=== PATIENT | female | born 2000 | race Caucasian/White ===

== ENCOUNTER 2022-02-14 21:50 | Emergency (ER) | payer BC ==
[2022-02-15] LABS: BHCG - Serum Negative (NEGATIVE); Pregs Control Background? CLEAR/WHITE (CLR/WHITE); Pregs Control Bar Appear? YES (CONTROL BAR)
[2022-02-15 00:01] LABS: #Basophils 0.1 10x3/uL (0.0-0.2); #Eosinphils 0.1 10x3/uL (0.0-0.5); #Monocytes 0.4 10x3/uL (0.0-1.1); #Neutrophils 4.3 10x3/uL (1.5-8.4); %Basophils 0.9 % (0.0-2.0); %Eosinophils 0.7 % (0.0-6.0); %Lymphocytes 28.9 % (18.0-47.0); %Monocytes 6.1 % (0.0-10.0); %Neutrophils 63.1 % (40.0-75.0); Hemoglobin 14.9 g/dL (12.0-15.5); Mean Corpuscular HGB CONC 34.3 g/dL (32.0-36.0); Mean Corpuscular Hemoglobin 29.3 pg (27.0-33.0); Mean Corpuscular Volume 85.3 fl (81.6-98.3); Mean Platelet Volume 11.2 fl (7.4-10.4); Platelet Count 286 10x3/uL (150-450); Red Blood Cell (RBC) Count 5.09 10x6/uL (3.90-5.03); White Blood Cell (WBC) Count 6.7 10x3/uL (3.5-10.5)
[2022-02-15 00:05] LABS: ALT (SGPT) 9 U/L (8-55); AST (SGOT) 14 U/L (5-34); Albumin 4.8 g/dL (3.5-5.0); Alkaline Phosphatase 83 U/L (40-110); Anion Gap 16 mmol/L (10-20); BUN (Urea Nitrogen) 12 mg/dL (7.0-18.7); Bilirubin, Total 0.4 mg/dL (0.2-1.2); Calc. Creatinine Clearance 0 mL/min (70-130); Calcium 9.8 mg/dL (7.8-10.44); Carbon Dioxide 21 mmol/L (22-29); Chloride 104 mmol/L (98-107); Globulin 2.7 g/dL (2.4-3.5); Glucose 110 mg/dL (70-105); Potassium 3.9 mmol/L (3.5-5.1); Protein, Total 7.5 g/dL (6.0-8.3); Sodium 137 mmol/L (136-145)
[2022-02-15] MEDS ORDERED: Lorazepam 2 MG/ML VIAL ONE (02:09)
== END 2022-02-15 02:30 | disposition home or self-care (01) ==
LOC: CSHERS 21:50
DX: R07.2 Precordial pain (principal)
CPT/HCPCS: 71045; 80053; 84484; 84703; 85025; 85379; 93005; J2060